=== PATIENT | female | born 1985 | race African-American/Black ===

== ENCOUNTER 2016-07-14 21:36 | Emergency (ER) | payer MEDICAID ==
[~2016-07-14] VITALS: Ht 170.2 cm; Wt 91.5 kg
[~2016-07-14 21:36] MED LIST: ACET500T76 PO; FURO-92 PO; MACI10TA PO; NORE0.3513 PO; POTA20PA8 PO; POTASSIUM PO; PROM12.55 PO; TADA20TA33 PO; TRAZ50TA18 PO; TREP10VI CATHFLUSH
[2016-07-14] MEDS ORDERED: DEXAMETHASONE 4 MG TABLET ONE (22:17)
[2016-07-14] MEDS ORDERED: BICILLIN-LA 1,200,000 UNITS/2 ML IM ONE (22:30)
[2016-07-14] MEDS ORDERED: DEXAMETHASONE 4 MG TABLET PO ONE (22:30)
[2016-07-14 23:00] VITALS: BP 117/64
== END 2016-07-14 23:13 | disposition home or self-care (01) ==
LOC: ED 23:01
DX: J03.90 Acute tonsillitis, unspecified (principal); G43.909 Migraine, unspecified, not intractable, without status migrainosus; K21.9 Gastro-esophageal reflux disease without esophagitis; I27.2 Other secondary pulmonary hypertension; I50.9 Heart failure, unspecified; F15.10 Other stimulant abuse, uncomplicated
CPT/HCPCS: 96372; 99283; J0561

== ENCOUNTER 2017-06-23 14:54 | Emergency (ER) | payer MEDICAID ==
[~2017-06-23] VITALS: Ht 170.2 cm; Wt 90.7 kg
[~2017-06-23 14:54] MED LIST changes: +ACET500T71 PO; -ACET500T76 PO; +POTA20PA25 PO; -POTA20PA8 PO
[2017-06-23 14:56] VITALS: BP 127/70
[2017-06-23] MEDS ORDERED: DIPHENHYDRAMINE 25 MG CAPSULE PO ONE (15:30)
== END 2017-06-23 15:55 | disposition home or self-care (01) ==
LOC: ED 15:20
DX: L50.9 Urticaria, unspecified (principal); G43.909 Migraine, unspecified, not intractable, without status migrainosus; K21.9 Gastro-esophageal reflux disease without esophagitis; I27.20 Pulmonary hypertension, unspecified; I50.9 Heart failure, unspecified; Z87.891 Personal history of nicotine dependence
CPT/HCPCS: 99283

== ENCOUNTER 2017-10-06 12:43 | Emergency (ER) | payer MEDICAID ==
[~2017-10-06] VITALS: Ht 170.2 cm; Wt 87.1 kg
[2017-10-06] MEDS ORDERED: CEFTRIAXONE PMX 1GM/50ML 50 ML IVPB ONE (13:30)
[2017-10-06] MEDS ORDERED: SODIUM CHLORIDE FLUSH 10ML SYR IVF ONE (13:30)
[2017-10-06] MEDS ORDERED: LIDOCAINE-MPF 1%, 5ML INFIL ONE (13:30)
[2017-10-06] MEDS ORDERED: METOCLOPRAMIDE 5 MG/ML, 2ML IVPush ONE (13:30)
[2017-10-06 13:32] LABS: BASOPHILS # (AUTO) 0.01 x10^3/uL (0-0.1); BASOPHILS % (AUTO) 0 % (0-1); EOSINOPHILS # (AUTO) 0.02 x10^3/uL (0-0.4); EOSINOPHILS % (AUTO) 0 % (1-7); LYMPHOCYTES # (AUTO) 0.94 x10^3/uL (1-3.4); LYMPHOCYTES % (AUTO) 11 % (22-44); MD NO; MEAN CORPUSCULAR HEMOGLOBIN 26.1 pg (27.0-34.8); MEAN CORPUSCULAR HGB CONC 32.9 g/dL (32.4-35.8); MEAN CORPUSCULAR VOLUME 79.3 fL (80-100); MEAN PLATELET VOLUME 8.5 fL (7.4-10.4); MONOCYTES % (AUTO) 6 % (2-9); NEUTROPHILS # (AUTO) 7.06 x10^3/uL (1.8-6.8); NEUTROPHILS % (AUTO) 83 % (42-75); PLATELET COUNT 287 x10^3/uL (130-400); RED BLOOD COUNT 6.41 x10^6/uL (3.82-5.3); RED CELL DISTRIBUTION WIDTH 16.3 % (9.6-15.2)
[2017-10-06 13:46] LABS: ALANINE AMINOTRANSFERASE 29 U/L (12-78); ALBUMIN 3.3 g/dL (3.4-5.0); ANION GAP 11 mmol/L (5-15); CALCIUM 9.3 mg/dL (8.5-10.1); CHLORIDE 108 mmol/L (98-107); CREATININE 1.01 mg/dL (0.55-1.02)
[2017-10-06] MEDS ORDERED: LIDOCAINE-MPF 1%, 2ML ONE (13:48)
[2017-10-06] MEDS ORDERED: CEFTRIAXONE PMX 1GM/50ML 50 ML ONE (13:49)
[2017-10-06] MEDS ORDERED: METOCLOPRAMIDE 5 MG/ML, 2ML ONE (13:49)
[2017-10-06 13:50] LABS: ALKALINE PHOSPHATASE 109 U/L (45-117); BILIRUBIN,TOTAL 1.2 mg/dL (0.2-1.0); TOTAL PROTEIN 7.5 g/dL (6.4-8.2)
[2017-10-06] MEDS ORDERED: LIDOCAINE-MPF 2% ,5ML ONE (14:02)
[2017-10-06] MEDS ORDERED: LIDOCAINE 2%, 20ML SQ ONE (14:30)
[2017-10-06 14:50] VITALS: BP 107/60
== END 2017-10-06 15:02 | disposition home or self-care (01) ==
LOC: ED 14:57
DX: L02.211 Cutaneous abscess of abdominal wall (principal)
CPT/HCPCS: 10060; 36415; 80053; 83605; 83690; 84703; 85025; 87040; 96365; 96375; 99284; J0696; J2765; J3490

== ENCOUNTER 2017-10-08 12:01 | Emergency (ER) | payer MEDICAID ==
[~2017-10-08] VITALS: Ht 170.2 cm; Wt 86.0 kg
[2017-10-08 12:02] VITALS: BP 154/78
== END 2017-10-08 13:26 | disposition home or self-care (01) ==
LOC: ED 13:20
DX: L02.211 Cutaneous abscess of abdominal wall (principal); K21.9 Gastro-esophageal reflux disease without esophagitis; I50.9 Heart failure, unspecified; I11.0 Hypertensive heart disease with heart failure
CPT/HCPCS: 99283

== ENCOUNTER → 2017-10-13 | Outpatient (CLI) | payer MEDICAID | END | disposition home or self-care (01) | LOC: CFH 13:46 | PROVIDERS: ATTEND Internal Medicine Cardiovascular Disease | DX: I07.1 Rheumatic tricuspid insufficiency (principal); I10 Essential (primary) hypertension | CPT/HCPCS: 93306 ==

== ENCOUNTER 2019-02-15 12:21 | Emergency (ER) | payer MEDICAID ==
[~2019-02-15] VITALS: Ht 170.2 cm; Wt 89.0 kg
[~2019-02-15 12:21] MED LIST changes: +ACET500T64 PO; -ACET500T71 PO; -PROM12.55 PO; +PROM12.57 PO; -TRAZ50TA18 PO; +TRAZ50TA66 PO
--- NOTE | 2019-02-15 12:37 | NUR ---
PT W/C BACK TO ROOM.
[2019-02-15] MEDS ORDERED: CEFTRIAXONE PMX 1GM/50ML 50 ML IVPB ONE (13:00)
[2019-02-15] MEDS ORDERED: SODIUM CHLORIDE FLUSH 10ML SYR IVF ONE (13:00)
[2019-02-15] MEDS ORDERED: LIDOCAINE-MPF 1%, 5ML INFIL ONE (13:00)
--- NOTE | 2019-02-15 13:09 | NUR ---
PT C/O ABSCESS TO ABDOMEN FROM HEART PUMP SITE X2 DAYS. HX CHF. PT CHANGED FROM INFECTED SITE TO NEW SITE YESTERDAY. SITE RED, SWOLLEN, NO DRAINAGE AT THIS TIME. HX INFECTED PUMP SITES. CONNECTED TO MONITORING. CALL LIGHT IN REACH. SUPPORT SYSTEM AT BEDSIDE. IV START LABS DRAWN AND COLLECT BY LAB.2X BLOOD CULTURE COLLECTED.
[2019-02-15] MEDS ORDERED: LIDOCAINE-MPF 1%, 5ML ONE (13:16)
[2019-02-15] MEDS ORDERED: CEFTRIAXONE PMX 1GM/50ML 50 ML ONE (13:16)
[2019-02-15 13:27] LABS: BASOPHILS # (AUTO) 0.03 x10^3/uL (0-0.1); BASOPHILS % (AUTO) 0 % (0-1); EOSINOPHILS # (AUTO) 0.14 x10^3/uL (0-0.4); EOSINOPHILS % (AUTO) 1 % (1-7); LYMPHOCYTES # (AUTO) 1.14 x10^3/uL (1-3.4); LYMPHOCYTES % (AUTO) 12 % (22-44); MD NO; MEAN CORPUSCULAR HEMOGLOBIN 28.2 pg (27.0-34.8); MEAN CORPUSCULAR HGB CONC 33.3 g/dL (32.4-35.8); MEAN CORPUSCULAR VOLUME 84.6 fL (80-100); MEAN PLATELET VOLUME 8.3 fL (7.4-10.4); MONOCYTES # (AUTO) 0.43 x10^3/uL (0.2-0.8); MONOCYTES % (AUTO) 4 % (2-9); NEUTROPHILS # (AUTO) 8.18 x10^3/uL (1.8-6.8); NEUTROPHILS % (AUTO) 82 % (42-75); PLATELET COUNT 242 x10^3/uL (130-400); RED CELL DISTRIBUTION WIDTH 15.3 % (9.6-15.2)
[2019-02-15] MEDS ORDERED: ONDANSETRON 2MG/ML, 2ML ONE (13:29)
[2019-02-15] MEDS ORDERED: HYDROmorphone 1 MG/ML, 1ML VIAL ONE (13:29)
[2019-02-15] MEDS ORDERED: ONDANSETRON 2MG/ML, 2ML IVPush ONE (13:30)
[2019-02-15] MEDS ORDERED: HYDROmorphone 2 MG/ML, 1ML IVPush PRN (13:30)
[2019-02-15 13:36] LABS: ALBUMIN 4.1 g/dL (3.4-5.0); ANION GAP 7 mmol/L (5-15); CALCIUM 8.6 mg/dL (8.5-10.1); CHLORIDE 107 mmol/L (98-107); CREATININE 1.16 mg/dL (0.55-1.02)
--- NOTE | 2019-02-15 14:04 | NUR ---
ALL RESULTS ARE BACK AT THIS TIME. CHART UP FOR RECHECK.
[2019-02-15 14:05] VITALS: BP 103/64
--- NOTE | 2019-02-15 14:06 | NUR ---
PT RESTING COMFORTABLY ON GURNEY. STATES PAIN DECREASED AFTER PAIN MEDS. NADN. CALL LIGHT IN REACH.
--- NOTE | 2019-02-15 14:39 | NUR ---
Patient/Caregiver given discharge instructions and they have confirmed that they understand the instructions. Patient ambulatory with steady gait.
== END 2019-02-15 14:52 | disposition home or self-care (01) ==
LOC: ED 14:40
DX: L02.211 Cutaneous abscess of abdominal wall (principal); I11.0 Hypertensive heart disease with heart failure; K21.9 Gastro-esophageal reflux disease without esophagitis; I50.9 Heart failure, unspecified; Z98.61 Coronary angioplasty status
CPT/HCPCS: 10060; 36415; 80048; 82040; 83605; 85025; 87040; 96365; 96375; 99284; J0696; J1170; J2405

== ENCOUNTER 2019-05-03 12:00 | Inpatient (IN) | payer MEDICAID ==
[~2019-05-03] VITALS: Ht 170.2 cm; Wt 98.0 kg
[~2019-05-03 12:00] MED LIST changes: -TREP10VI CATHFLUSH; +TREP10VI SC
[2019-05-03] MEDS ORDERED: VANCOMYCIN PER PHARMACY MC ONE (13:00)
[2019-05-03] MEDS ORDERED: PIPERACILLIN/TAZO/PMX 3.375GM 50 ML IVPB ONE (13:00)
[2019-05-03] MEDS ORDERED: SODIUM CHLORIDE 0.9% 1,000ML IVBOLUS ONE ×3 (13:00→16:00)
[2019-05-03] MEDS ORDERED: LIDOCAINE 1%-EPI 1:100K, 20ML INFIL ONE (13:00)
[2019-05-03] MEDS ORDERED: VANCOMYCIN 1,800 MG in SODIUM CHLORIDE 0.9% 250 ML IV ONE (13:00)
--- NOTE | 2019-05-03 13:02 | NUR ---
PT HERE WITH C/O ABCESS AT PREVIOUS SITE FOR HEART PUMP. PT STATES "IT GOT BAD 2 WEEKS AGO AND IT HURTS, I KNOW I WAITED TOO LONG." PT DRESSED IN GOWN AND ATTACHED TO MONITOR. ABCESS NOTED TO RIGHT MID ABDOMEN. PT AAO X 4, STATES SHE WEARS O2 AT HOME 4 L BUT 96% ON ROOM AIR. PIV ESTABLISHED, LABS DRAWN, IV FLUIDS INFUSING. AND PA AT BEDSIDE FOR EXAM.
[2019-05-03] MEDS ORDERED: LIDOCAINE-MPF 1%, 5ML ONE (13:05)
[2019-05-03 13:23] LABS: BASOPHILS # (AUTO) 0.02 x10^3/uL (0-0.1); BASOPHILS % (AUTO) 0 % (0-1); EOSINOPHILS # (AUTO) 0.02 x10^3/uL (0-0.4); EOSINOPHILS % (AUTO) 0 % (1-7); LYMPHOCYTES # (AUTO) 0.72 x10^3/uL (1-3.4); LYMPHOCYTES % (AUTO) 10 % (22-44); MD NO; MEAN CORPUSCULAR HGB CONC 33.3 g/dL (32.4-35.8); MEAN CORPUSCULAR VOLUME 84.1 fL (80-100); MEAN PLATELET VOLUME 8.3 fL (7.4-10.4); MONOCYTES # (AUTO) 0.09 x10^3/uL (0.2-0.8); MONOCYTES % (AUTO) 1 % (2-9); NEUTROPHILS # (AUTO) 6.14 x10^3/uL (1.8-6.8); NEUTROPHILS % (AUTO) 88 % (42-75); PLATELET COUNT 330 x10^3/uL (130-400); RED BLOOD COUNT 5.65 x10^6/uL (3.82-5.3); RED CELL DISTRIBUTION WIDTH 15.3 % (9.6-15.2)
[2019-05-03 13:34] LABS: ALANINE AMINOTRANSFERASE 16 U/L (12-78); ALBUMIN 3.2 g/dL (3.4-5.0); ANION GAP 8 mmol/L (5-15); CALCIUM 8.6 mg/dL (8.5-10.1); CHLORIDE 109 mmol/L (98-107); CREATININE 1.04 mg/dL (0.55-1.02)
[2019-05-03 13:38] LABS: MICROSCOPIC INDICATED
[2019-05-03 13:38] LABS: ALKALINE PHOSPHATASE 79 U/L (45-117); BILIRUBIN,TOTAL 0.9 mg/dL (0.2-1.0); TOTAL PROTEIN 7.4 g/dL (6.4-8.2)
--- NOTE | 2019-05-03 13:48 | NUR ---
PT MEDICATED PER ORDER.
--- NOTE | 2019-05-03 13:56 | NUR ---
THIS RN AT BEDSIDE, NOTICED THAT ABCESS THAT WAS RECENTLY DRAINED BY PASTE THINNER WAS BLEEDING, DRESSING REPLACED.
[2019-05-03 14:00] LABS: CULTURE INDICATED? YES
[2019-05-03] MEDS ORDERED: SODIUM CHLORIDE FLUSH 10ML SYR IVF ONE (14:00)
--- NOTE | 2019-05-03 14:00 | NUR ---
REPORT FROM DELFINO MOCK. PT RESTING IN [facility] NOTED. VANCO RUNNING PER ORDER. FRIEND AT BEDSIDE. PT REPORTS IRVING JUAREZ AWARE. AWAITING ORDERS FOR MEDS.
--- NOTE | 2019-05-03 14:09 | NUR ---
REPORT GIVEN TO DELFINO FULLER. CARE TRANSFERRED.
[2019-05-03] MEDS ORDERED: PIPERACILLIN/TAZO/PMX 3.375GM 50 ML ONE (14:13)
[2019-05-03] MEDS ORDERED: MORPHINE SULFATE 4 MG/ML, 1ML ONE (14:14)
--- NOTE | 2019-05-03 14:25 | NUR ---
THIS RN DISCUSSED WITH MD PT'S BP (93/44 MAP 58), HANG SECOND LITER PER MD. THIS RN TO BEDSIDE, SECOND PIV ESTABLISHED, SECOND LITER GOING AND SECOND IV ABX ADMINISTERED. PT MEDICATED FOR PAIN.
[2019-05-03] MEDS ORDERED: MORPHINE SULFATE 4 MG/ML, 1ML IVPush ONE ×2 (14:30→15:00)
--- NOTE | 2019-05-03 14:34 | NUR ---
TASK RN: EKG COMPLETED, MD AT BEDSIDE FOR REASSESSMENT.
--- NOTE | 2019-05-03 14:57 | NUR ---
PT REPORTS IMPROVEMENT IN PAIN WITH MEDICATIONS PROVIDED. DENIES NEED FOR FURTHER MEDICATIONS. PT RESTING IN [place], NAD NOTED. SLIGHT IMPROVEMENT IN BP NOTED, 102/48. PT DENIES DIZZINESS/WEAKNESS/NAUSEA. FLUIDS SLOWED D/T HX OF CHF; PT DENIES SOB AT THIS TIME. SPO2 >90% ON BASELINE 4L BY NC. ABX CONTINUE TO INFUSE. NO S/S OF ABX RXN NOTED. FRIEND AT BEDSIDE.
[2019-05-03] MEDS ORDERED: SPIR50TA PO (15:10)
[2019-05-03] MEDS ORDERED: BIRTH CONTROL (15:11)
--- NOTE | 2019-05-03 16:37 | NUR ---
PT REMAINS HYPOTENSIVE. CONTINUES TO DENY DIZZINESS/WEAKNESS/NAUSEA. THIRD LITER NS HUNG PER ERP ORDER. ORDER CLARIFIED D/T HX OF CHF, OKAY TO HANG PER ERP. PT DENIES SOB. AWAITING ADMIT
[2019-05-03] MEDS ORDERED: ONDANSETRON ODT 4 MG PO PRN (17:30)
[2019-05-03] MEDS ORDERED: VANCOMYCIN PER PHARMACY MC PRN (17:30)
[2019-05-03] MEDS ORDERED: PHARMACY MAY ADJ FOR RENAL FX MC PRN (17:30)
[2019-05-03] MEDS ORDERED: ACETAMINOPHEN 325 MG TABLET PO PRN (17:30)
[2019-05-03] MEDS ORDERED: ONDANSETRON 2MG/ML, 2ML IVPush PRN (17:30)
--- NOTE | 2019-05-03 18:34 | NUR ---
PT RESTING IN GURNEY W/ EYES CLOSED. EVEN/REGULAR RESPIRATIONS NOTED. NAD NOTED. AWAITING ADMIT
--- NOTE | 2019-05-03 18:39 | NUR ---
REPORT GIVEN TO DELFINO TAYLOR. PT TO TRANSFER TO INPATIENT STATUS.
[2019-05-03 19:30] VITALS: BP 89/51
[2019-05-03] MEDS ORDERED: PHARMACOKINETIC MONITORING MC PRN (20:00)
[2019-05-03 20:25] VITALS: BP 90/53
[2019-05-03] MEDS: AMPICILLIN/SULBACTAM 3 GM in SODIUM CHLORIDE 0.9% 100 ML IV SCH (20:27)
[2019-05-03] MEDS: ENOXAPARIN 40 MG/0.4 ML SQ SCH (20:28)
[2019-05-03] MEDS ORDERED: FUROSEMIDE 40 MG TABLET PO SCH (21:00)
[2019-05-03] MEDS ORDERED: SILD20TA2 PO (23:17)
[2019-05-04] MEDS ORDERED: SILDENAFIL 20 MG TABLET PO SCH
[2019-05-04] MEDS ORDERED: [UNRECOGNIZED DRUG - OTHER] PO (00:10)
[2019-05-04] MEDS: AMPICILLIN/SULBACTAM 3 GM in SODIUM CHLORIDE 0.9% 100 ML IV SCH ×4 (02:32→20:04)
[2019-05-04 02:40] VITALS: BP 93/54
[2019-05-04 05:39] LABS: BASOPHILS # (AUTO) 0.01 x10^3/uL (0-0.1); BASOPHILS % (AUTO) 0 % (0-1); EOSINOPHILS # (AUTO) 0.11 x10^3/uL (0-0.4); EOSINOPHILS % (AUTO) 3 % (1-7); LYMPHOCYTES # (AUTO) 1.31 x10^3/uL (1-3.4); LYMPHOCYTES % (AUTO) 28 % (22-44); MD NO; MEAN CORPUSCULAR HEMOGLOBIN 28.4 pg (27.0-34.8); MEAN CORPUSCULAR HGB CONC 33.9 g/dL (32.4-35.8); MEAN CORPUSCULAR VOLUME 83.9 fL (80-100); MONOCYTES # (AUTO) 0.43 x10^3/uL (0.2-0.8); MONOCYTES % (AUTO) 9 % (2-9); NEUTROPHILS # (AUTO) 2.77 x10^3/uL (1.8-6.8); NEUTROPHILS % (AUTO) 60 % (42-75); PLATELET COUNT 293 x10^3/uL (130-400); RED BLOOD COUNT 5.19 x10^6/uL (3.82-5.3); RED CELL DISTRIBUTION WIDTH 15.4 % (9.6-15.2)
[2019-05-04 05:43] LABS: CALCIUM 7.8 mg/dL (8.5-10.1); CHLORIDE 112 mmol/L (98-107)
[2019-05-04 05:48] LABS: ALANINE AMINOTRANSFERASE 12 U/L (12-78); ALBUMIN 2.6 g/dL (3.4-5.0); ALKALINE PHOSPHATASE 62 U/L (45-117); ANION GAP 8 mmol/L (5-15); CREATININE 0.87 mg/dL (0.55-1.02); TOTAL PROTEIN 6.1 g/dL (6.4-8.2)
[2019-05-04] MEDS ORDERED: VANCOMYCIN 1,500 MG in SODIUM CHLORIDE 0.9% 250 ML IV SCH (07:00)
[2019-05-04 07:02] VITALS: BP 84/42
[2019-05-04] MEDS: POTASSIUM CHLORIDE 20 MEQ PACKET PO SCH (08:35)
[2019-05-04] MEDS: SILDENAFIL 20 MG TABLET PO SCH ×4 (08:36→20:13)
[2019-05-04] MEDS: TEMPLATE NON-FORMULARY MED. (Macitentan** (Opsumit**) 10 MG) PO SCH (08:36)
[2019-05-04] MEDS ORDERED: TADALAFIL 20 MG PO SCH (09:00)
[2019-05-04] MEDS ORDERED: FUROSEMIDE 40 MG TABLET PO SCH (09:00)
[2019-05-04] MEDS ORDERED: SPIRONOLACTONE 50 MG TABLET PO SCH ×2 (09:00)
[2019-05-04] MEDS: SPIRONOLACTONE 50 MG TABLET PO SCH (09:02)
[2019-05-04] MEDS: FUROSEMIDE 40 MG TABLET PO SCH ×2 (09:02→20:13)
[2019-05-04 10:12] VITALS: BP 88/48
[2019-05-04 12:44] VITALS: BP 97/61
[2019-05-04] MEDS: VANCOMYCIN 2,000 MG in SODIUM CHLORIDE 0.9% 500 ML IV SCH (17:58)
[2019-05-04] MEDS ORDERED: CALCIUM CARBONATE 500 MG TAB.CHEW PO PRN (18:00)
[2019-05-04] MEDS ORDERED: TREPROSTINIL SQ PRN (18:30)
[2019-05-04] MEDS: ENOXAPARIN 40 MG/0.4 ML SQ SCH (20:05)
[2019-05-04 20:14] VITALS: BP 91/61
[2019-05-05 00:43] VITALS: BP 87/47
[2019-05-05] MEDS: AMPICILLIN/SULBACTAM 3 GM in SODIUM CHLORIDE 0.9% 100 ML IV SCH ×4 (01:34→21:45)
[2019-05-05 01:39] VITALS: BP 130/84
[2019-05-05] MEDS: VANCOMYCIN 2,000 MG in SODIUM CHLORIDE 0.9% 500 ML IV SCH ×2 (05:48→17:50)
[2019-05-05 08:34] VITALS: BP 104/66
[2019-05-05] MEDS: SPIRONOLACTONE 50 MG TABLET PO SCH (08:40)
[2019-05-05] MEDS: FUROSEMIDE 40 MG TABLET PO SCH ×2 (08:40→20:43)
[2019-05-05] MEDS: TEMPLATE NON-FORMULARY MED. (Macitentan** (Opsumit**) 10 MG) PO SCH (08:41)
[2019-05-05] MEDS: POTASSIUM CHLORIDE 20 MEQ PACKET PO SCH ×2 (08:41→09:00)
[2019-05-05] MEDS: SILDENAFIL 20 MG TABLET PO SCH ×3 (08:41→20:42)
[2019-05-05 13:28] VITALS: BP 103/63
[2019-05-05 19:21] VITALS: BP 95/59
[2019-05-05 20:40] VITALS: BP 99/61
[2019-05-05] MEDS: ENOXAPARIN 40 MG/0.4 ML SQ SCH (20:43)
[2019-05-06 00:16] VITALS: BP 92/54
[2019-05-06] MEDS: AMPICILLIN/SULBACTAM 3 GM in SODIUM CHLORIDE 0.9% 100 ML IV SCH ×2 (04:11→09:51)
[2019-05-06 06:52] VITALS: BP 103/65
[2019-05-06] MEDS: SPIRONOLACTONE 50 MG TABLET PO SCH (08:40)
[2019-05-06] MEDS: POTASSIUM CHLORIDE 20 MEQ PACKET PO SCH (08:40)
[2019-05-06] MEDS: FUROSEMIDE 40 MG TABLET PO SCH (08:40)
[2019-05-06] MEDS: SILDENAFIL 20 MG TABLET PO SCH (08:40)
[2019-05-06] MEDS: TEMPLATE NON-FORMULARY MED. (Macitentan** (Opsumit**) 10 MG) PO SCH (08:40)
[2019-05-06] MEDS ORDERED: SULF1TAB24 PO (10:56)
[2019-05-06] MEDS ORDERED: FLU VACC QS2019-20 36MOS UP/PF 0.5 ML IM-VACC ONE (12:30)
[2019-05-06 13:47] VITALS: BP 93/61
[2019-05-06] MEDS ORDERED: VANCOMYCIN 2,000 MG in SODIUM CHLORIDE 0.9% 500 ML IV SCH (18:00)
== END 2019-05-06 15:16 | disposition home or self-care (01) | DRG 710 ==
LOC: ED 14:21 → EDIP 15:37 → 4WST 19:10
PROVIDERS: ADMIT Internal Medicine; ATTEND Internal Medicine
PROC: 0W9G0ZZ Drainage of Peritoneal Cavity, Open Approach (ICD-10-PCS; principal; 2019-05-03)
DX: A41.9 Sepsis, unspecified organism (principal); J96.10 Chronic respiratory failure, unspecified whether with hypoxia or hypercapnia; I27.20 Pulmonary hypertension, unspecified; I11.0 Hypertensive heart disease with heart failure; I50.9 Heart failure, unspecified; I42.9 Cardiomyopathy, unspecified; B95.62 Methicillin resistant Staphylococcus aureus infection as the cause of diseases classified elsewhere; L02.211 Cutaneous abscess of abdominal wall; L03.311 Cellulitis of abdominal wall; R65.20 Severe sepsis without septic shock; Z79.899 Other long term (current) drug therapy; Z23 Encounter for immunization
CPT/HCPCS: 36415; 76705; 80053; 80202; 81001; 83605; 83690; 83880; 85025; 87040; 87070; 87077; 87086; 87186; 87205; 90686; 93005; 96361; 96365; 96375; G0378; J0295; J1650; J2543; J3370; J2270; J7030; J7040; J7050

== ENCOUNTER 2019-05-09 09:56 | Outpatient (CLI) | payer MEDICAID ==
[~2019-05-09 09:56] MED LIST changes: +BIRTH CONTROL; +SILD20TA2 PO; +SPIR50TA PO; +SULF1TAB24 PO; +[UNRECOGNIZED DRUG - OTHER] PO
== END 2019-05-09 23:59 | disposition home or self-care (01) ==
LOC: WOUND 09:56
PROVIDERS: ATTEND Internal Medicine
DX: L02.211 Cutaneous abscess of abdominal wall (principal); I11.0 Hypertensive heart disease with heart failure; I50.9 Heart failure, unspecified; I42.9 Cardiomyopathy, unspecified; Z79.899 Other long term (current) drug therapy
CPT/HCPCS: 97597; 99214

== ENCOUNTER 2019-05-16 09:45 | Outpatient (CLI) | payer MEDICAID | END 2019-05-16 23:59 | disposition home or self-care (01) | LOC: WOUND 09:45 | PROVIDERS: ATTEND Internal Medicine | DX: L02.211 Cutaneous abscess of abdominal wall (principal); I11.0 Hypertensive heart disease with heart failure; I50.9 Heart failure, unspecified; I42.9 Cardiomyopathy, unspecified; Z79.899 Other long term (current) drug therapy | CPT/HCPCS: 11042 ==

== ENCOUNTER → 2019-06-06 | Outpatient (CLI) | payer MEDICAID | END | disposition home or self-care (01) | LOC: WOUND 10:27 | PROVIDERS: ATTEND Internal Medicine | DX: L02.211 Cutaneous abscess of abdominal wall (principal); I11.0 Hypertensive heart disease with heart failure; I50.9 Heart failure, unspecified; I42.9 Cardiomyopathy, unspecified; Z79.899 Other long term (current) drug therapy; J96.10 Chronic respiratory failure, unspecified whether with hypoxia or hypercapnia | CPT/HCPCS: 99212 ==

== ENCOUNTER → 2019-11-16 | Outpatient (CLI) | payer MEDICAID | END | disposition home or self-care (01) | LOC: CFH 15:54 | PROVIDERS: ATTEND Internal Medicine Cardiovascular Disease | DX: I08.8 Other rheumatic multiple valve diseases (principal); I27.20 Pulmonary hypertension, unspecified | CPT/HCPCS: 93306 ==

== ENCOUNTER 2020-01-24 22:38 | Emergency (ER) | payer MEDICAID ==
[~2020-01-24] VITALS: Ht 170.2 cm; Wt 77.8 kg
[2020-01-24 22:40] VITALS: BP 100/71
--- NOTE | 2020-01-24 23:10 | NUR ---
PT AMBULATES FROM LOBBY TO ROOM WITH STEADY GAIT. PT SENT TO RESTROOM WITH UA CUP TO VOID AND INSTRUCTED TO WAIT IN GURNEY IN GOWN FOR ERP. CALL LIGHT WITHIN REACH AT THIS TIME. PT VERBALIZES UNDERSTANDING OF ER PROCESS.
[2020-01-25 00:19] LABS: BASOPHILS % (AUTO) 1 % (0-1); EOSINOPHILS % (AUTO) 1 % (1-7); LYMPHOCYTES % (AUTO) 18 % (22-44); MEAN CORPUSCULAR HEMOGLOBIN 27.2 pg (27.0-34.8); MEAN CORPUSCULAR HGB CONC 34.1 g/dL (32.4-35.8); MEAN PLATELET VOLUME 8.3 fL (7.4-10.4); MONOCYTES % (AUTO) 9 % (2-9); NEUTROPHILS % (AUTO) 72 % (42-75); PLATELET COUNT 260 x10^3/uL (130-400); RED BLOOD COUNT 5.45 x10^6/uL (3.82-5.3); RED CELL DISTRIBUTION WIDTH 14.7 % (9.6-15.2)
[2020-01-25] MEDS ORDERED: LIDOCAINE-MPF 2% ,5ML ONE (00:26)
[2020-01-25 00:29] LABS: ALANINE AMINOTRANSFERASE 17 U/L (12-78); ALBUMIN 3.3 g/dL (3.4-5.0); ANION GAP 7 mmol/L (5-15); CALCIUM 8.8 mg/dL (8.5-10.1); CHLORIDE 107 mmol/L (98-107); CREATININE 0.98 mg/dL (0.55-1.02)
[2020-01-25] MEDS ORDERED: LIDOCAINE 2%, 20ML SQ ONE (00:30)
[2020-01-25 00:31] LABS: ALKALINE PHOSPHATASE 71 U/L (45-117); BILIRUBIN,TOTAL 0.4 mg/dL (0.2-1.0); MD NO; TOTAL PROTEIN 7.2 g/dL (6.4-8.2)
--- NOTE | 2020-01-25 00:34 | NUR ---
LEOPOLDO AMBRIZ, AT BS FOR PT I&D.
--- NOTE | 2020-01-25 01:04 | NUR ---
PT D/C WITH D/C SUMMARY AND SCRIPTS. ALL QUESTIONS ANSWERED. PT VERBALIZES UNDERSTANDING OF NEED TO F/U WITH PCP. PT AMBULATES TO REGISTRATION DESK WITH STEADY GAIT FOR D/C HOME.
== END 2020-01-25 01:10 | disposition home or self-care (01) ==
LOC: ED 01-25 00:15
DX: L02.211 Cutaneous abscess of abdominal wall (principal); R10.9 Unspecified abdominal pain; K21.9 Gastro-esophageal reflux disease without esophagitis; I11.0 Hypertensive heart disease with heart failure; I50.9 Heart failure, unspecified; G43.909 Migraine, unspecified, not intractable, without status migrainosus
CPT/HCPCS: 10060; 36415; 80053; 85025; 99283

== ENCOUNTER 2020-06-22 17:36 | Emergency (ER) | payer MEDICAID ==
[~2020-06-22] VITALS: Ht 170.2 cm; Wt 87.5 kg
[2020-06-22] MEDS ORDERED: DEXAMETHASONE 4 MG TABLET PO ONE (18:30)
[2020-06-22 19:10] LABS: BASOPHILS % (AUTO) 1 % (0-1); EOSINOPHILS % (AUTO) 1 % (1-7); LYMPHOCYTES % (AUTO) 16 % (22-44); MEAN CORPUSCULAR HEMOGLOBIN 28.2 pg (27.0-34.8); MEAN CORPUSCULAR HGB CONC 34.4 g/dL (32.4-35.8); MEAN PLATELET VOLUME 7.7 fL (7.4-10.4); MONOCYTES % (AUTO) 9 % (2-9); NEUTROPHILS % (AUTO) 75 % (42-75); PLATELET COUNT 238 x10^3/uL (130-400); RED BLOOD COUNT 5.72 x10^6/uL (3.82-5.3); RED CELL DISTRIBUTION WIDTH 14.3 % (9.6-15.2)
[2020-06-22 19:15] LABS: MD NO
--- NOTE | 2020-06-22 19:19 | NUR ---
PT TO ROOM FROM LOBBIE/.
[2020-06-22 19:22] LABS: ALBUMIN 3.3 g/dL (3.4-5.0); ANION GAP 6 mmol/L (5-15); CALCIUM 8.6 mg/dL (8.5-10.1); CHLORIDE 106 mmol/L (98-107)
[2020-06-22 19:23] LABS: CREATININE 1.21 mg/dL (0.55-1.02)
[2020-06-22 20:11] VITALS: BP 101/64
--- NOTE | 2020-06-22 20:13 | NUR ---
PT IN BED UP FOR RECHECK
[2020-06-22] MEDS ORDERED: DEXAMETHASONE 4 MG TABLET ONE (20:17)
--- NOTE | 2020-06-22 20:37 | NUR ---
PT WALKED OUT SELF WITH STEADY GAIT. IF S&S WORSEN RETURN TO ER
== END 2020-06-22 20:45 | disposition home or self-care (01) ==
LOC: ED 20:34
DX: J02.8 Acute pharyngitis due to other specified organisms (principal); B97.89 Other viral agents as the cause of diseases classified elsewhere; I11.0 Hypertensive heart disease with heart failure; I50.9 Heart failure, unspecified; K21.9 Gastro-esophageal reflux disease without esophagitis
CPT/HCPCS: 36415; 80048; 82040; 85025; 87081; 87880; 99283

== ENCOUNTER 2020-10-16 12:24 | Emergency (ER) | payer MEDICAID ==
[~2020-10-16] VITALS: Ht 170.2 cm; Wt 100.0 kg
[~2020-10-16 12:24] MED LIST changes: -NORE0.3513 PO; +NORE0.3519 PO; +SULF-23 PO; -SULF1TAB24 PO
[2020-10-16] MEDS ORDERED: ACETAMINOPHEN 500 MG TABLET PO ONE (15:00)
--- NOTE | 2020-10-16 15:28 | NUR ---
DISCHARGED BY DR WHITE
[2020-10-16 15:30] VITALS: BP 97/59
== END 2020-10-16 15:32 | disposition home or self-care (01) ==
LOC: ED 14:45
DX: S90.111A Contusion of right great toe without damage to nail, initial encounter (principal); I50.9 Heart failure, unspecified; W22.8XXA Striking against or struck by other objects, initial encounter; Y93.89 Activity, other specified; Y92.009 Unspecified place in unspecified non-institutional (private) residence as the place of occurrence of the external cause; Y99.8 Other external cause status
CPT/HCPCS: 99283

== ENCOUNTER 2020-12-24 22:59 | Emergency (ER) | payer MEDICAID ==
[~2020-12-24] VITALS: Ht 170.2 cm; Wt 79.0 kg
[2020-12-24] MEDS ORDERED: LIDOCAINE-MPF 1%, 5ML ONE (23:38)
[2020-12-24] MEDS ORDERED: BACITRACIN ZINC OINT 500U/GM, 0.9 GM ONE (23:39)
[2020-12-24 23:48] VITALS: BP 101/60
[2020-12-25] MEDS ORDERED: DIPH,PERTUSS(ACELL),TET VAC/PF 0.5 ML IM-VACC ONE
[2020-12-25] MEDS ORDERED: LIDOCAINE-MPF 1%, 5ML INFIL ONE
--- NOTE | 2020-12-25 00:47 | NUR ---
patient given resources to file police report for [place] [employer]. patient also given resources to stay at [facility] for the night due to home situation
--- NOTE | 2020-12-25 00:50 | NUR ---
patients oxygen level was 88% before discharging patient home. Spoke with Viktoriya LINDSEY prior to discharging patient about 02 levels with patients current diagnoses of pulm htn and use of a CPAP at night. Carlos Fox MD said that it was okay to discharge patient home because this is her normal VS. Patient d/c'ed home
== END 2020-12-25 00:54 | disposition home or self-care (01) ==
LOC: ED 12-25 00:44
DX: S41.112A Laceration without foreign body of left upper arm, initial encounter (principal); S00.531A Contusion of lip, initial encounter; S70.311A Abrasion, right thigh, initial encounter; I11.0 Hypertensive heart disease with heart failure; I50.9 Heart failure, unspecified; K21.9 Gastro-esophageal reflux disease without esophagitis; I27.20 Pulmonary hypertension, unspecified; Y00.XXXA Assault by blunt object, initial encounter; Y93.89 Activity, other specified; Y92.009 Unspecified place in unspecified non-institutional (private) residence as the place of occurrence of the external cause; Y99.8 Other external cause status
CPT/HCPCS: 12002; 99282